=== PATIENT | male | born 1945 | race Caucasian/White ===

== ENCOUNTER 2021-04-13 10:28 | Outpatient (REF) | payer MEDICARE, OTHER, SELFPAY ==
[2021-04-13 12:40] LABS: Prostate Specific Antigen 6.93 ng/mL (<0.05-4.0)
== END 2021-04-13 10:29 | disposition home or self-care (01) ==
LOC: HO.LAB 10:28
PROVIDERS: Visit Provider Urology
DX: R97.20 Elevated prostate specific antigen [PSA] (principal)
CPT/HCPCS: 36415; 84153

== ENCOUNTER → 2021-04-17 11:19 | Outpatient (BNVA) | payer MEDICARE, OTHER, SELFPAY | PROVIDERS: Visit Provider Urology | DX: R97.20 Elevated prostate specific antigen [PSA] (principal) | CPT/HCPCS: Q3014 ==

== ENCOUNTER → 2021-10-17 11:15 | Outpatient (BNVA) | payer OTHER, MEDICARE, SELFPAY | PROVIDERS: PCP Internal Medicine; Visit Provider Urology ==

== ENCOUNTER 2022-04-16 09:52 | Outpatient (REF) | payer OTHER, MEDICARE, SELFPAY ==
[2022-04-16 11:10] LABS: PSA,Total (Free>4and<10) 3.17 ng/mL (0.00-4.00)
== END 2022-04-16 09:53 | disposition home or self-care (01) ==
LOC: HO.LAB 09:52
PROVIDERS: PCP Internal Medicine Critical Care Medicine; Visit Provider Urology
DX: Z12.5 Encounter for screening for malignant neoplasm of prostate (principal); C61 Malignant neoplasm of prostate; N40.1 Benign prostatic hyperplasia with lower urinary tract symptoms; N13.8 Other obstructive and reflux uropathy
CPT/HCPCS: 36415; 84153

== ENCOUNTER 2022-10-11 11:40 | Outpatient (REF) | payer OTHER, MEDICARE, SELFPAY ==
[2022-10-11 13:13] LABS: PSA,Total (Free>4and<10) 2.11 ng/mL (0.00-4.00); Prostate Specific Antigen 2.24 ng/mL (<0.05-4.0)
== END 2022-10-11 11:41 | disposition home or self-care (01) ==
LOC: HO.LAB 11:40
PROVIDERS: Visit Provider Urology
DX: Z12.5 Encounter for screening for malignant neoplasm of prostate (principal); C61 Malignant neoplasm of prostate
CPT/HCPCS: 36415; 84153

== ENCOUNTER → 2022-10-18 13:00 | Outpatient (BNVA) | payer OTHER, SELFPAY | PROVIDERS: PCP Internal Medicine Critical Care Medicine; Visit Provider Urology | DX: N40.1 Benign prostatic hyperplasia with lower urinary tract symptoms (principal); N13.8 Other obstructive and reflux uropathy; C61 Malignant neoplasm of prostate | CPT/HCPCS: 99212 ==

== ENCOUNTER 2023-04-16 15:27 | Outpatient (REF) | payer OTHER, SELFPAY | END 2023-04-16 15:28 | disposition home or self-care (01) | LOC: HO.LAB 15:27 | PROVIDERS: PCP Hospitalist; Visit Provider Urology | DX: Z12.5 Encounter for screening for malignant neoplasm of prostate (principal); C61 Malignant neoplasm of prostate | CPT/HCPCS: 36415; 84153 ==

== ENCOUNTER 2023-04-23 12:52 | Outpatient (AMB) | payer OTHER, SELFPAY ==
--- NOTE | 2023-04-23 13:03 | MHC.OFFVIS ---
Intake Intake Visit Reasons: 6m/PSA(set) Allergies donepezil Allergy (Unknown, Verified 10/18/22 13:14) Unknown No Known Allergies [No Known Allergies*] Allergy (Verified 10/18/22 13:14) HPI HPI Comments History of Present Illness Details Raul is a pleasant male. Martel. He is seen for the following urologic conditions - prostate cancer - lower urinary tract symptoms Telemedicine Evaluation 15 min Consultation [employer] James Melania Video attempted Low PSA Stay on finasteride for next 6 months Understands PSA will ebb and flow on off therapy Prostate cancer initial diagnosis 2010 [place] 6 PSA 4.6 Prostate cancer initial diagnosis [address] Initial pathology PSA 4.6, [place] 6 Initial therapy - active surveillance PSA - historically has varied between 4.9 and as high as 7.2 - 05/01 6.9, 09/01 5.1, 05/02 3.2, 10/31 2.2, 05/03 2.9 Previously has been offered radiation and he understands consequences for delay in therapy PFS Medical History Anisometropia Cataract Chronic a-fib Diabetes mellitus, type II Diaphragmatic hernia Elevated prostate specific antigen [PSA] Elevated PSA Erectile dysfunction Gastro-esophageal reflux disease with esophagitis HTN (hypertension) Hyperlipidemia Prostate cancer Review of Systems Const All systems reviewed & are unremarkable except as noted in HPI and below Reports no additional complaints Resp Reports no additional complaints GI Reports no additional complaints Reports as per HPI Musc Reports no additional complaints Physical Exam Telemedicine evaluation Appropriate responses Regular breathing rate and rhythm HEENT Head: Yes normal to inspection Ears: hearing grossly normal bilaterally Eyes General: appearance normal, both eyes and all related structures Neck Neck: Yes normal visual inspection Chest Chest palpation & inspection: normal inspection of the chest Resp Effort & Inspection: normal respiratory effort and able to speak in complete sentences Assessment & Plan Assessment & Plan (1) Prostate cancer: Code(s): C61 - Malignant neoplasm of prostate (2) BPH w urinary obs/LUTS: Code(s): N40.1 - Benign prostatic hyperplasia with lower urinary tract symptoms; N13.8 - Other obstructive and reflux uropathy Plan Six month follow-up PSA Orders: Orders Prostate Specific Antigen 6 Months C61 - Malignant neoplasm of prostate Medications: New finasteride 5 mg PO DAILY 90 tabs 1RF 90 days C61 - Malignant neoplasm of prostate, N13.8 - Other obstructive and reflux uropathy, N40.1 - Benign prostatic hyperplasia with lower urinary tract symptoms, R33.9 - Retention of urine, unspecified Refilled tamsulosin 0.4 mg PO BEDTIME 90 days 90 caps 3RF N13.8 - Other obstructive and reflux uropathy, N40.1 - Benign prostatic hyperplasia with lower urinary tract symptoms, R35.1 - Nocturia Patient Instructions: Imaging studies, laboratory and physical exam results were discussed and reviewed in detail. No major barriers to patient understanding were identified. An opportunity to ask questions regarding the treatment plan was provided. All questions were answered. The patient expressed understanding and agreement with the above treatment plan. The patient is aware they should contact our office by phone for worsening of their current condition or the appearance of new urologic symptoms. Compliance is encouraged with any medications and followup testing that is ordered. It is a privilege to participate in the urologic care of your patient. If you have any questions or concerns regarding treatment for the above conditions, or other urologic issues, please do not hesitate to contact me. The office telephone contact is [phone]. This note is constructed using voice recognition software. While every effort has been made to ensure accuracy registration specialist errors may have been included. Yours sincerely, Dr Manjeet Mcdaniels MD, [facility] - Urology Providers of Expert, Compassionate Care for the Genitourinary System Telehealth Telehealth Location of provider rendering services: practice address Location of patient: address on file Patient Identification confirmed using: Name, : Yes Telehealth method: voice only Patient verbally consented to treatment: Yes Patient verbally consented to billing insurance company: Yes Patient informed of any privacy concerns related to visit: Yes Coding Level of Care Code Tele Est Pt Level 3 (30061) Diagnoses Prostate cancer C61 BPH w urinary obs/LUTS N40.1; N13.8
== END 2023-04-23 13:38 | disposition home or self-care (01) ==
PROVIDERS: PCP Hospitalist; Visit Provider Urology
DX: C61 Malignant neoplasm of prostate (principal); N40.1 Benign prostatic hyperplasia with lower urinary tract symptoms; N13.8 Other obstructive and reflux uropathy
CPT/HCPCS: 99213

== ENCOUNTER → 2023-04-23 12:52 | Outpatient (BNVA) | payer OTHER, SELFPAY | PROVIDERS: PCP Hospitalist; Visit Provider Urology ==

== ENCOUNTER 2023-10-10 13:41 | Outpatient (REF) | payer OTHER, SELFPAY ==
[2023-10-10 15:14] LABS: Prostate Specific Antigen 3.26 ng/mL (<0.05-4.0)
== END 2023-10-10 13:42 | disposition home or self-care (01) ==
LOC: HO.LAB 13:41
PROVIDERS: PCP Hospitalist; Visit Provider Urology
DX: Z12.5 Encounter for screening for malignant neoplasm of prostate (principal); C61 Malignant neoplasm of prostate
CPT/HCPCS: 36415; 84153

== ENCOUNTER 2023-10-21 12:57 | Outpatient (AMB) | payer OTHER, SELFPAY ==
--- NOTE | 2023-10-21 13:06 | MHC.OFFVIS ---
Intake Intake Visit Reasons: 6M PSA/Med(set/Finasteride)Confirmed Intake Note: Patient is Present for Follow Up Urology Medication: Finasteride, Tamsulosin Antibiotic Allergies: None Blood Thinners: Eliquis Confirmed Pharmacy: [facility] PVR: 43 Allergies donepezil Allergy (Unknown, Verified 10/21/23 13:10) Unknown No Known Allergies [No Known Allergies*] Allergy (Verified 10/21/23 13:10) Medication List - Last Reconciled 10/21/23 by Manjeet Mcdaniels MD allopurinol 300 mg PO DAILY apixaban (Eliquis) 5 mg PO BID atorvastatin mg PO carboxymethylcellulose sodium 0.5% drps ophthalmic (eye) cholecalciferol (vitamin D3) (Vitamin D3) PO cyanocobalamin (vitamin B-12) (Vitamin B-12) 100 mcg PO DAILY finasteride 5 mg PO DAILY 90 days galantamine 4 mg PO BID hydrochlorothiazide 12.5 mg PO DAILY memantine 10 mg PO DAILY metoprolol tartrate 50 mg PO DAILY omeprazole 20 mg PO BID tamsulosin 0.4 mg PO BEDTIME 90 days HPI HPI Comments History of Present Illness Details Raul is a pleasant male. [place]. He is seen for the following urologic conditions - prostate cancer - lower urinary tract symptoms Low PSA Continue with finasteride Understands PSA will ebb and flow on off therapy Six-month follow-up PSA Prostate cancer initial diagnosis 2010 [place] 6 PSA 4.6 Prostate cancer initial diagnosis 2010 at the [place] Initial pathology PSA 4.6, [place] 6 Initial therapy - active surveillance PSA - historically has varied between 4.9 and as high as 7.2 - 05/01 6.9, 09/01 5.1, 05/02 3.2, 10/31 2.2, 05/03 2.9, 11/01 3.3 Previously has been offered radiation and he understands consequences for delay in therapy [facility], [facility] Medical History Hyperlipidemia Gastro-esophageal reflux disease with esophagitis Diaphragmatic hernia Anisometropia Cataract Chronic a-fib Diabetes mellitus, type II HTN (hypertension) Erectile dysfunction Elevated PSA Prostate cancer Elevated prostate specific antigen [PSA] Review of Systems Const Denies chills and Denies fever(s) Card Reports no additional complaints and Denies syncope Resp Denies cough GI Denies abdominal pain and Denies heartburn Reports as per HPI and Denies change in libido Neuro Denies syncope Psych Denies change in libido Endo Denies change in libido Physical Exam Const General: cooperative, healthy appearing, comfortable and no acute distress Orientation/consciousness: patient oriented x3 HEENT Face and sinus: Yes normal facial exam Mouth: moist mucous membranes Neck Neck: Yes normal visual inspection, Yes full ROM and Yes trachea midline Chest Chest palpation & inspection: normal inspection of the chest Resp Effort & Inspection: normal respiratory effort, able to speak in complete sentences and no respiratory distress GI Inspection: Yes normal to inspection Back/Spine/Pelvis Cervical Spine: normal cervical lordosis Thoracic/Lumbar Spine: thoracic and lumbar spine normal to inspection Skin General skin exam: no rashes or lesions noted Neuro General: patient oriented x3, gait normal, tone normal and moves all extremities Extrem General: Yes normal to inspection and Yes capillary refill normal Office Procedures Post Void Residual Post Residual Void Post Void Residual (PVR): [id number] Void Residual by ultrasound Assessment & Plan Assessment & Plan (1) BPH w urinary obs/LUTS: Code(s): N40.1 - Benign prostatic hyperplasia with lower urinary tract symptoms; N13.8 - Other obstructive and reflux uropathy (2) Erectile dysfunction: Code(s): N52.9 - Male erectile dysfunction, unspecified (3) Prostate cancer: Code(s): C61 - Malignant neoplasm of prostate Plan Six-month follow-up Orders: Orders AMB Post Void Residual by ultrasound Today N13.8 - Other obstructive and reflux uropathy, N40.1 - Benign prostatic hyperplasia with lower urinary tract symptoms Prostate Specific Antigen 6 Months N13.8 - Other obstructive and reflux uropathy, N40.1 - Benign prostatic hyperplasia with lower urinary tract symptoms Medications: Refilled finasteride 5 mg PO DAILY 90 days 90 tabs 1RF C61 - Malignant neoplasm of prostate, N13.8 - Other obstructive and reflux uropathy, N40.1 - Benign prostatic hyperplasia with lower urinary tract symptoms, R33.9 - Retention of urine, unspecified Patient Instructions: Imaging studies, laboratory and physical exam results were discussed and reviewed in detail. No major barriers to patient understanding were identified. An opportunity to ask questions regarding the treatment plan was provided. All questions were answered. The patient expressed understanding and agreement with the above treatment plan. The patient is aware they should contact our office by phone for worsening of their current condition or the appearance of new urologic symptoms. Compliance is encouraged with any medications and followup testing that is ordered. It is a privilege to participate in the urologic care of your patient. If you have any questions or concerns regarding treatment for the above conditions, or other urologic issues, please do not hesitate to contact me. The office telephone contact is [phone]. This note is constructed using voice recognition software. While every effort has been made to ensure accuracy lode miner blasting errors may have been included. Yours sincerely, Dr Manjeet Mcdaniels MD, [facility] - Urology Providers of Expert, Compassionate Care for the Genitourinary System Coding Level of Care Code Est Pt Level 3 (22017) Diagnoses BPH w urinary obs/LUTS N40.1; N13.8 Erectile dysfunction N52.9 Prostate cancer C61 CPT Codes Post Residual Void - PVR CPT Code: 71555-Msqo Void Residual by ultrasound ([id number])
== END 2023-10-21 14:12 | disposition home or self-care (01) ==
PROVIDERS: PCP Hospitalist; Referring Provider Urology; Visit Provider Urology
DX: N40.1 Benign prostatic hyperplasia with lower urinary tract symptoms (principal); N13.8 Other obstructive and reflux uropathy; N52.9 Male erectile dysfunction, unspecified; C61 Malignant neoplasm of prostate
CPT/HCPCS: 99213

== ENCOUNTER → 2023-10-21 12:57 | Outpatient (BNVA) | payer OTHER, SELFPAY | PROVIDERS: PCP Hospitalist; Visit Provider Urology | DX: N40.1 Benign prostatic hyperplasia with lower urinary tract symptoms (principal); N13.8 Other obstructive and reflux uropathy; N52.9 Male erectile dysfunction, unspecified; C61 Malignant neoplasm of prostate | CPT/HCPCS: 51798; 99212 ==

== ENCOUNTER 2023-10-27 09:25 | Inpatient (IN) | payer OTHER, SELFPAY ==
[2023-10-27] VITALS (8 sets, daily range): BP systolic 99–129; BP diastolic 49–78; PULSE 90–130; RESP 17–24; TEMP 37.1–38.5; O2SAT 96–98; BMI 26.5
--- NOTE | ~2023-10-27 | XR_ITS ---
EXAMINATION: XR CHEST CLINICAL INFORMATION: Dyspnea and cough COMPARISON: 12/04/2018 TECHNIQUE: Frontal view of the chest was obtained. FINDINGS: The heart and pulmonary vessels appear normal. There is some ill-defined patchy density seen in the right mid lung which could represent an infiltrate. No gross consolidations, pleural effusions, pneumothorax or lung masses are seen. XR/XR chest 1V IMPRESSION: Question of right midlung infiltrate.
--- NOTE | 2023-10-27 09:32 | ED.SOB ---
HPI - SOB/Dyspnea General Chief Complaint: Dyspnea Stated Complaint: COUGH SOB Time Seen by Provider: 10/27/23 09:30 Source: patient, family and old records reviewed Mode of arrival: EMS Limitations: other (dementia) History of Present Illness HPI Narrative: 78 yo male from home here with c/o HLD, GRD, afib on eliquis, HTN, DM, BPH, mild dementia here with c/o cough, increased agitation, confusion, not feeling well, increased dyspnea. Has had a cough for the past month with sick family members but he is not getting better and seemed to get worse yesterday. No falls reported. MD elicited complaint: shortness of breath and cough Onset (ago): month(s) (1 month worse last night) Context: recent illness Timing: progressively worsening Severity: moderate Exacerbating factors: lying flat, exertion and coughing Relieving factors: oxygen and rest Associated symptoms: fever, cough and wheezing Treatment prior to arrival: oxygen (92% with EMS) Related Data Home Medications Medication Instructions Recorded Confirmed allopurinol 300 mg tablet 300 mg PO DAILY 04/17/21 10/21/23 apixaban 5 mg tablet (Eliquis) 5 mg PO BID 04/17/21 10/21/23 atorvastatin 80 mg tablet mg PO 04/17/21 10/21/23 carboxymethylcellulose sodium 0.5 drp ophthalmic (eye) 04/17/21 10/21/23 % eye drops cholecalciferol (vitamin D3) 50 PO 04/17/21 10/21/23 mcg (2,000 unit) tablet (Vitamin D3) galantamine 4 mg tablet 4 mg PO BID 04/17/21 10/21/23 hydrochlorothiazide 12.5 mg capsule 12.5 mg PO DAILY 04/17/21 10/21/23 memantine 10 mg tablet 10 mg PO DAILY 04/17/21 10/21/23 metoprolol tartrate 50 mg tablet 50 mg PO DAILY 04/17/21 10/21/23 omeprazole 20 mg capsule,delayed 20 mg PO BID 04/17/21 10/21/23 release cyanocobalamin (vitamin B-12) 100 100 mcg PO DAILY 10/17/21 10/21/23 mcg tablet (Vitamin B-12) Previous Rx's Medication Instructions Recorded tamsulosin 0.4 mg capsule 0.4 mg PO BEDTIME 90 days #90 caps 04/23/23 finasteride 5 mg tablet 5 mg PO DAILY 90 days #90 tabs 10/21/23 Allergies Allergy/AdvReac Type Severity Reaction Status Date / Time donepezil Allergy Unknown Unknown Verified 10/21/23 13:10 No Known Allergies Allergy Verified 10/21/23 13:10 [No Known Allergies*] Review of Systems Review of Systems: Constitutional : No Fever, pos Chills ENT/Mouth : No sore throat, No Rhinorrhea, No Swallowing Difficulty Eyes: No Eye Pain, No Swelling, No Redness Cardiovascular : No Chest Pain, positive SOB, No Orthopnea, no Edema Respiratory : pos Cough, No Sputum, No Wheezing, positive dyspnea Gastrointestinal : No Nausea, No Vomiting, No Diarrhea, No abdominal Pain, No Hematochezia, No Melena Genitourinary : No Dysuria, No Urinary Frequency, No Hematuria Musculoskeletal : No joint pain, No Myalgias Skin : No Skin Lesions, No rash Neuro : No Weakness, No Numbness, No Dizziness, No Headache Psych : No Anxiety/Panic, No Depression All other systems reviewed and are negative [facility] Past Medical History Attestation statement: The following information was validated with the patient. Source: old records reviewed Medical History Hyperlipidemia Gastro-esophageal reflux disease with esophagitis Diaphragmatic hernia Anisometropia Cataract Chronic a-fib Diabetes mellitus, type II HTN (hypertension) Erectile dysfunction Elevated PSA Prostate cancer Elevated prostate specific antigen [PSA] Social History Social History (Updated 10/27/23 @ 10:03 by Reva Webber DO) Alcohol intake: former Patient Tobacco Use Status: Never used Tobacco Smoked in Last 30 Days: No Use of substances other than those prescribed or required for medical reasons: No Advance Directives: No Advance Directives Information Provided: No Physical Exam Vital Signs: Vital Signs: Last Vital Signs Temp 100.1 F 10/27/23 09:37 Pulse 102 H 10/27/23 10:00 Resp 18 10/27/23 10:00 BP 114/67 10/27/23 09:37 Pulse Ox 96 10/27/23 10:00 O2 Del Method Room Air 10/27/23 10:00 Oxygen Flow Rate 1 10/27/23 09:37 BMI result Body Mass Index 26.5 Appearance: Alert. Oriented X2 at baseline. No acute distress. Eyes: Pupils equal, round and reactive to light. ENT: Pharynx normal. Neck: Normal inspection. Neck supple. CVS: tachyardic irregular heart rate and rhythm. Pulses normal. Respiratory: No respiratory distress. Breath sounds diminished with mild wheezes noted upper lobes Abdomen: Soft and non-tender. Skin: Skin warm and dry. Normal skin color. Normal skin turgor. Extremities: No lower extremity edema. Neuro: Oriented X 2 at baseline. No motor deficit. No sensory deficit. Medications Administered Discontinued Medications Generic Name Dose Route Start Last Admin Trade Name Sue PRN Reason Stop Dose Admin Acetaminophen 650 mg 10/27/23 09:42 10/27/23 10:02 Acetaminophen 325 Mg Tablet PO 10/27/23 09:43 650 mg ONCE ONE Administration Albuterol/Ipratropium 3 ml 10/27/23 09:48 10/27/23 09:53 Albuterol/Iprat 2.5/0.5mg 3 Ml Ampul.Neb INHALE 10/27/23 09:49 3 ml ONCE ONE Administration Ceftriaxone Sodium 1 gm/ 50 mls @ 100 mls/hr 10/27/23 09:42 10/27/23 10:57 Sodium Chloride IV 10/27/23 10:11 Infused ONCE ONE Infusion Sodium Chloride 1,000 mls @ 999 mls/hr 10/27/23 09:45 10/27/23 09:56 Ns IV 10/27/23 10:45 999 mls/hr .Q1H1M VALENTÍN Administration Medical Decision Making Medical Decision Making [facility] Narrative: 78 yo male from home here with c/o HLD, GRD, afib on eliquis, HTN, DM, BPH, mild dementia here with tachycardia, low grade temps persistent fevers and increased work of breathing with some agitation and confusion at this time will obtain labs, CXR, viral panel, UA and give neb treatment, tylenol and empiric ceftriaxone. Differential Diagnosis Differential Diagnoses: The differential diagnosis associated with the presentation includes viral syndrome, CHF, pneumonia, UTI, bronchitis Admission/Observation Consideration of admission/observation: Escalation of care including admission/observation considered will admit given lyte derangment, flu, pneumonia PSI score is 126 Consult Healthcare Provider Management of the patient was discussed with: Hospitalist (will admit) Lab Data [facility] Lab Attestation statement: I reviewed the patient's lab results. 10/27/23 09:59 10/27/23 09:59 Labs: Lab Results 10/27/23 10/27/23 Range/Units 09:59 10:04 WBC 7.9 (4.8-10.8) X10*3/uL RBC 4.22 L (4.60-5.80) X10*6/uL Hgb 12.6 L (14.0-18.0) g/dl Hct 36.9 L (42.0-52.0) % MCV 87.4 (80.0-98.0) fL MCH 29.9 (27.0-33.0) pg MCHC 34.1 (31.0-36.0) g/dl RDW 14.5 (11.0-16.0) % Plt Count 229 (160-400) X10*3/uL MPV 9.9 (9.4-12.4) fL Immature Gran % (Auto) 0.3 (0.0-0.4) % Neut % (Auto) 80.1 H (45-73) % Lymph % (Auto) 9.5 L (20-40) % Hall % (Auto) 9.7 (2-11) % Eos % (Auto) 0.0 (0-4) % Baso % (Auto) 0.4 (0-2) % Lymph # (Auto) 0.8 L (1.2-4.9) X10*3/uL Hall # (Auto) 0.8 (0.1-1.2) X10*3/uL Eos # (Auto) 0.0 (0.0-0.4) X10*3/uL Baso # (Auto) 0.0 (0.0-0.2) X10*3/uL Abs Immat Gran (auto) 0.02 (0.00-0.03) X10*3/uL Absolute Neuts (auto) 6.3 (2.0-8.3) x10*3/uL Absolute Nucleated RBC 0.000 (0.0-0.012) X10*3/uL Nucleated RBC % (auto) 0.0 (0.0-0.2) /100WBC VBG pH 7.54 H (7.32-7.43) VBG pCO2 27 mmHg VBG pO2 83 mmHg VBG HCO3 23 (22-26) mmol/L VBG O2 Saturation 99.0 % VBG Base Excess 2.1 mmol/L Sodium 128 L (135-145) mmol/L Potassium 3.8 (3.3-5.1) mmol/L Chloride 96 (96-108) mmol/L Carbon Dioxide 21 L (22-29) mmol/L Anion Gap 15 (12-20) BUN 12 (9-16) mg/dL Creatinine 0.89 (0.5-1.4) mg/dL Estim Creat Clear Calc 72.9 Estimated GFR > 60 Random Glucose 154 H (60-115) mg/dL Lactic Acid 2.0 (0.5-2.0) mmol/L Calcium 8.8 (8.4-10.2) mg/dL Magnesium 1.4 L* (1.6-2.6) mg/dL Total Bilirubin 1.3 H (0.0-1.0) mg/dL Direct Bilirubin 0.4 (0.0-0.5) mg/dL AST 30 (5-37) U/L ALT 15 (0-40) U/L Alkaline Phosphatase 60 (39-117) U/L Troponin I High Sens 9.6 (<3.5-35.0) ng/L B-Natriuretic Peptide 236 H (<100) pg/mL Total Protein 6.3 L (6.5-8.0) g/dL Albumin 3.9 (3.5-5.0) g/dL Influenza Type A (PCR) POSITIVE A (Negative) Influenza Type B (PCR) NEGATIVE (Negative) RSV RNA Qual (PCR) NEGATIVE (Negative) SARS-CoV-2 RNA (RT-PCR) NEGATIVE (Negative) Independent Interpretation I performed an independent interpretation of an: EKG and Plain X-Ray (R lung opacity) Interpretation: Rate: 95 Rhythm: afib Critz: normal Normal QRS complex. ST T wave : no [place] qTC: 452 prior studies: no acute ischemi The study has been interpreted contemporaneously by me. . Independent Historian Clinical information obtained from an independent historian. History obtained from or confirmed by: Spouse, EMS and Other External Record Review External record reviewed: Outpatient record Critical Care Time Critical Care Time Critical Care Time: Yes Total Critical Care Time: 40 Attestation: review of records, discussion with family, IV magnesium, admission I attest to this time spent taking care of the patient Discharge Plan Discharge Clinical Impression: Acute hyponatremia, Hypomagnesemia, Influenza A CAP (community acquired pneumonia) Qualifiers: Laterality: right Lung location: middle lobe of lung Qualified Code(s): J18.9 - Pneumonia, unspecified organism Patient Disposition: Admitted As Inpatient Prescriptions: No Action cyanocobalamin (vitamin B-12) [Vitamin B-12] 100 mcg tablet 100 mcg PO DAILY carboxymethylcellulose sodium 0.5 % drops ophthalmic (eye) Eliquis 5 mg tablet 5 mg PO BID omeprazole 20 mg capsule,delayed release(DR/EC) 20 mg PO BID metoprolol tartrate 50 mg tablet 50 mg PO DAILY atorvastatin 80 mg tablet PO galantamine 4 mg tablet 4 mg PO BID cholecalciferol (vitamin D3) [Vitamin D3] 50 mcg (2,000 unit) tablet PO allopurinol 300 mg tablet 300 mg PO DAILY hydrochlorothiazide 12.5 mg capsule 12.5 mg PO DAILY memantine 10 mg tablet 10 mg PO DAILY tamsulosin 0.4 mg capsule 0.4 mg PO BEDTIME 90 Days Qty: 90 3RF finasteride 5 mg tablet 5 mg PO DAILY 90 Days Qty: 90 1RF
--- NOTE | 2023-10-27 09:39 | ECG_ITS ---
Test Reason : DYSPNEA Blood Pressure : / mmHG Vent. Rate : 095 BPM Atrial Rate : 000 BPM P-R Int : 000 ms QRS Dur : 090 ms QT Int : 360 ms P-R-T Axes : 000 025 013 degrees QTc Int : 452 ms Atrial fibrillation with premature ventricular or aberrantly conducted complexes Abnormal ECG When compared with ECG of 04-DEC-2018 19:08, No significant change was found Referred By: Reva Webber Electronically Signed By:CLAUS HONEYCUTT
[2023-10-27] MEDS: Albuterol/Iprat 2.5/0.5MG 3 ML AMPUL.NEB INHALE (09:53)
[2023-10-27] MEDS: 0.9 % Sodium Chloride 1,000 ML 999 ML IV (09:56)
[2023-10-27] MEDS: cefTRIAXone sodium 1 GM in 0.9 % Sodium Chloride 50 ML IV (10:02)
[2023-10-27] MEDS: Acetaminophen 325 MG TABLET 650 MG PO ×2 (10:02→23:32)
[2023-10-27 10:06] LABS: MANUAL DIFF FLAG NO
[2023-10-27 10:08] LABS: Basophils Percent Auto 0.4 % (0-2); Hematocrit 36.9 % (42.0-52.0); Hemoglobin 12.6 g/dl (14.0-18.0); Imm Gran Abs Auto 0.02 X10*3/uL (0.00-0.03); Imm Gran Pct Auto 0.3 % (0.0-0.4); Lymphocytes Absolute Auto 0.8 X10*3/uL (1.2-4.9); Lymphocytes Percent Auto 9.5 % (20-40); Mean Corpuscular HGB Conc 34.1 g/dl (31.0-36.0); Mean Corpuscular Hemoglobin 29.9 pg (27.0-33.0); Mean Corpuscular Volume 87.4 fL (80.0-98.0); Mean Platelet Volume 9.9 fL (9.4-12.4); Monocytes Absolute Auto 0.8 X10*3/uL (0.1-1.2); Monocytes Percent Auto 9.7 % (2-11); Neutrophils Absolute Auto 6.3 x10*3/uL (2.0-8.3); Neutrophils Percent Auto 80.1 % (45-73); Platelet Count 229 X10*3/uL (160-400); Red Blood Count 4.22 X10*6/uL (4.60-5.80); Red Cell Distribution Width 14.5 % (11.0-16.0); White Blood Count 7.9 X10*3/uL (4.8-10.8)
[2023-10-27 10:12] LABS: Venous Blood Gas Refer to POC result
[2023-10-27 10:13] LABS: VBG Base Excess 2.1 mmol/L; VBG HCO3 23 mmol/L (22-26); VBG pCO2 27 mmHg; VBG pH 7.54 (7.32-7.43); VBG pO2 83 mmHg
[2023-10-27 10:37] LABS: B Type Natriuretic Peptide 236 pg/mL (<100)
[2023-10-27 10:40] LABS: Troponin-I High Sensitivity 9.6 ng/L (<3.5-35.0)
[2023-10-27 10:52] LABS: Carbon Dioxide 21 mmol/L (22-29); Chloride 96 mmol/L (96-108); Potassium 3.8 mmol/L (3.3-5.1); Sodium 128 mmol/L (135-145)
[2023-10-27 10:53] LABS: Alanine Aminotransferase 15 U/L (0-40); Albumin Level 3.9 g/dL (3.5-5.0); Alkaline Phosphatase 60 U/L (39-117); Anion Gap 15 (12-20); Aspartate Amino Transferase 30 U/L (5-37); Bilirubin Direct 0.4 mg/dL (0.0-0.5); Bilirubin Total 1.3 mg/dL (0.0-1.0); Blood Urea Nitrogen 12 mg/dL (9-16); Calcium 8.8 mg/dL (8.4-10.2); Creatinine Clr Calc Pharmacy 72.9; Estimated Glomerular Filt Rate > 60; Glucose Random 154 mg/dL (60-115); Total Protein 6.3 g/dL (6.5-8.0)
[2023-10-27 10:55] LABS: Magnesium 1.4 mg/dL (1.6-2.6)
[2023-10-27 10:58] LABS: Influenza A PCR POSITIVE (Negative); Influenza B PCR NEGATIVE (Negative); Resp Syncy Virus RNA Qual PCR NEGATIVE (Negative); SARS COV2 PCR INHOUSE NEGATIVE (Negative)
[2023-10-27] MEDS: Magnesium Sulfate/H2O 2 GM/50 ML PIGGYBACK IV (11:14)
[2023-10-27] MEDS: Azithromycin 500 MG in 0.9 % Sodium Chloride 250 ML 125 MG IV (11:33)
[2023-10-27 11:38] LABS: Procalcitonin 0.11 ng/mL
[2023-10-27 13:12] LABS: Appearance Urine Clear; Color Urine Yellow; Glucose Urine UA Negative (Negative); Leukocyte Esterase Urine Negative (Negative); Nitrite Urine Negative (Negative); PH 6.5 (5.0-9.0); Urine Blood Negative (Negative); Urine Ketones Negative (Negative); Urine Protein Negative (Neg-Trace)
--- NOTE | 2023-10-27 14:23 | P.HPHOSP_ITS ---
History of Present Illness Date of Service: 10/27/23 Chief Complaint: cough 78 yo male from home here with complaints of cough, increased agitation, confusion and increased dyspnea. Has had a cough for the past month with sick family members but he is not getting better and seemed to get worse yesterday. No fever, chills, nausea, vomiting, diarrhea. he did have some confusion during the interview so unable to obtain complete information. Flu A positive, chest x-ray showing question of right midlung infiltrate, sodium 128, magnesium 1.4, low-grade temperature of a 100.1 degrees. In the ER, patient was given ceftriaxone, azithromycin, magnesium, albuterol, Tylenol and 1 L of IV fluid. He will be admitted for further management and treatment of flu with community- acquired pneumonia. Review of Systems 2 Review of Systems: Yes Unobtainable due to mental condition (confusion ) [facility] Medical History Hyperlipidemia Gastro-esophageal reflux disease with esophagitis Diaphragmatic hernia Anisometropia Cataract Chronic a-fib Diabetes mellitus, type II HTN (hypertension) Erectile dysfunction Elevated PSA Prostate cancer Elevated prostate specific antigen [PSA] Social History (Updated 10/27/23 @ 10:03 by Reva Webber DO) Household Members: Spouse and Family Housing: House Alcohol intake: former Patient Tobacco Use Status: Never used Tobacco service: Yes Meds Allergies Allergy/AdvReac Type Severity Reaction Status Date / Time donepezil Allergy Unknown Unknown Verified 10/21/23 13:10 No Known Allergies Allergy Verified 10/21/23 13:10 [No Known Allergies*] Active Medications: Current Medications Acetaminophen (Acetaminophen 325 Mg Tablet) 650 mg PO Q6H PRN PRN Reason: Pain, Mild (Pain Scale 1-3) Ondansetron HCl (Ondansetron Hcl 4 Mg/2 Ml Vial) 4 mg IVPUSH Q8H PRN PRN Reason: Nausea and Vomiting Sodium Chloride (0.9 % Sodium Chloride Flush 3 Ml Syringe) [facility] Medication Instructions Recorded Confirmed Last Taken Type allopurinol 300 mg tablet 300 mg PO DAILY 04/17/21 10/27/23 Unknown History apixaban 5 mg tablet (Eliquis) 5 mg PO BID 04/17/21 10/27/23 Unknown History atorvastatin 80 mg tablet 40 mg PO DAILY 04/17/21 10/27/23 Unknown History carboxymethylcellulose sodium 0.5 1 drp ophthalmic (eye) QID 04/17/21 10/27/23 Unknown History % eye drops galantamine 4 mg tablet 4 mg PO BID 04/17/21 10/27/23 Unknown History hydrochlorothiazide 12.5 mg capsule 12.5 mg PO DAILY 04/17/21 10/27/23 Unknown History memantine 10 mg tablet 10 mg PO DAILY 04/17/21 10/27/23 Unknown History omeprazole 20 mg capsule,delayed 20 mg PO BID 04/17/21 10/27/23 Unknown History release cyanocobalamin (vitamin B-12) 100 100 mcg PO DAILY 10/17/21 10/27/23 Unknown History mcg tablet (Vitamin B-12) albuterol sulfate 90 mcg/actuation 2 puff inhalation Q4-6H PRN 10/27/23 10/27/23 Unknown History aerosol inhaler Shortness Of Breath carvedilol 12.5 mg tablet 12.5 mg PO BID 10/27/23 10/27/23 Unknown History Physical Exam 2 Vital Signs and Narrative: Vital Signs: Last Vital Signs Temp 99.6 F 10/27/23 11:20 Pulse 90 10/27/23 12:13 Resp 24 H 10/27/23 12:13 BP 99/63 10/27/23 12:13 Pulse Ox 97 10/27/23 12:13 O2 Del Method Room Air 10/27/23 12:13 Oxygen Flow Rate 1 10/27/23 09:37 BMI result Body Mass Index 26.5 Appearing in no acute distress head is normocephalic atraumatic eyes pupils are PERRLA sclera is anicteric mouth throat mucous membranes are intact and moist neck is supple no lymphadenopathy, no JVD noted lung sounds are clear to auscultation heart regular rate rhythm, clear S1, S2 positive bowel sounds, abdomen is soft, nontender neuro patient is alert x3, no focal deficits Results Labs 10/28/23 05:48 10/28/23 05:48 Labs: Laboratory Results - last 24 hr 10/27/23 10/27/23 10/27/23 09:59 10:04 11:09 MCV 87.4 MCH 29.9 MCHC 34.1 RDW 14.5 Plt Count 229 MPV 9.9 Immature Gran % (Auto) 0.3 Neut % (Auto) 80.1 H Lymph % (Auto) 9.5 L [place] % (Auto) 9.7 Eos % (Auto) 0.0 Baso % (Auto) 0.4 Lymph # (Auto) 0.8 L [place] # (Auto) 0.8 Eos # (Auto) 0.0 Baso # (Auto) 0.0 Abs Immat Gran (auto) 0.02 Absolute Neuts (auto) 6.3 Absolute Nucleated RBC 0.000 Nucleated RBC % (auto) 0.0 VBG pH 7.54 H VBG pCO2 27 VBG pO2 83 VBG HCO3 23 VBG O2 Saturation 99.0 VBG Base Excess 2.1 Anion Gap 15 Estim Creat Clear Calc 72.9 Estimated GFR > 60 Random Glucose 154 H Lactic Acid 2.0 Calcium 8.8 Magnesium 1.4 L* Total Bilirubin 1.3 H Direct Bilirubin 0.4 AST 30 ALT 15 Alkaline Phosphatase 60 Troponin I High Sens 9.6 B-Natriuretic Peptide 236 H Total Protein 6.3 L Albumin 3.9 Procalcitonin 0.11 Urine Color Urine Appearance Urine pH Ur Specific [place] Urine Protein Urine Glucose (UA) Urine Ketones Urine Blood Urine Nitrite Ur Leukocyte Esterase Influenza Type A (MICHELLE) Cancelled Influenza Type A (PCR) POSITIVE A Influenza Type B (MICHELLE) Cancelled Influenza Type B (PCR) NEGATIVE Influenza A & B Note Cancelled RSV RNA Qual (PCR) NEGATIVE SARS-CoV-2 RNA (RT-PCR) NEGATIVE 10/27/23 13:05 MCV MCH MCHC RDW Plt Count MPV Immature Gran % (Auto) Neut % (Auto) Lymph % (Auto) [place] % (Auto) Eos % (Auto) Baso % (Auto) Lymph # (Auto) [place] # (Auto) Eos # (Auto) Baso # (Auto) Abs Immat Gran (auto) Absolute Neuts (auto) Absolute Nucleated RBC Nucleated RBC % (auto) VBG pH VBG pCO2 VBG pO2 VBG HCO3 VBG O2 Saturation VBG Base Excess Anion Gap Estim Creat Clear Calc Estimated GFR Random Glucose Lactic Acid Calcium Magnesium Total Bilirubin Direct Bilirubin AST ALT Alkaline Phosphatase Troponin I High Sens B-Natriuretic Peptide Total Protein Albumin Procalcitonin Urine Color Yellow Urine Appearance Clear Urine pH 6.5 Ur Specific [place] 1.010 Urine Protein Negative Urine Glucose (UA) Negative Urine Ketones Negative Urine Blood Negative Urine Nitrite Negative Ur Leukocyte Esterase Negative Influenza Type A (MICHELLE) Influenza Type A (PCR) Influenza Type B (MICHELLE) Influenza Type B (PCR) Influenza A & B Note RSV RNA Qual (PCR) SARS-CoV-2 RNA (RT-PCR) Imaging Radiologist's Impressions: Impressions Chest X-Ray 10/27/23 10:31 IMPRESSION: Question of right midlung infiltrate. Assessment and Plan (1) Influenza A: Status: Acute (2) CAP (community acquired pneumonia): Qualifiers: Laterality: right Lung location: middle lobe of lung Qualified Code(s): J18.9 - Pneumonia, unspecified organism Status: Acute Plan 78 year old man admitted with Flu A, PNA and increased confusion Influenza A tamiflu supportive care robitussin for cough CAP no hypoxia or sepsis Rocephin and azithromycin supplemental oxygen as needed Hyponatremia likely from dehydration Paroxysmal afib continue metoprolol and apixaban monitor on tele for rvr HTN Hold HCTZ Gout continue allopurinol HLD statin GERD PPI BPH Finesteride and flomax Dementia, unspecified memantine DVT prophylaxis with apixaban Full code Patient will likely require 48 hours for treatment of flu with cough, community- acquired pneumonia requiring IV antibiotics, due to history of dementia patient higher risk for decompensation therefore treatment could not be done at a lesser acute setting. Quality Stroke Does the patient have a stroke diagnosis?: No VTE Prior VTE?: No VTE Risk Level:: Medical - moderate - high VTE Device Contraindication: Treatment Not Indicated VTE Drug Contraindication: N/A - Med Ordered
--- NOTE | 2023-10-27 15:10 | PC.NURSE ---
Patient restless, bedside recliner provided, patient resting comfortably with no s/s of pain or discomfort. Daughter at bedside
[2023-10-27] MEDS: 0.9 % Sodium Chloride Flush 3 ML SYRINGE IVFLUSH ×2 (15:26→23:33)
[2023-10-27 15:28] LABS: Anion Gap 13 (12-20); Blood Urea Nitrogen 10 mg/dL (9-16); Calcium 8.4 mg/dL (8.4-10.2); Carbon Dioxide 24 mmol/L (22-29); Chloride 98 mmol/L (96-108); Creatinine Clr Calc Pharmacy 80.1; Estimated Glomerular Filt Rate > 60; Glucose Random 137 mg/dL (60-115); Magnesium 2.1 mg/dL (1.6-2.6); Sodium 131 mmol/L (135-145)
[2023-10-27] MEDS: Oseltamivir Phosphate 75 MG CAPSULE PO (18:24)
--- NOTE | 2023-10-27 18:50 | PHA.MEDREC ---
Pharmacy Consult ? Medication Reconciliation Pharmacy has completed the medication reconciliation. Patient's daughter did not know medications, patient's was on the way to urgent so could not contact. Received list from the [place]. Yas Mendoza, YadyD
--- NOTE | 2023-10-27 23:45 | PC.NURSE ---
Pateint medicat with Tylenol 650 mg PO for temp 101.1.
[2023-10-28] VITALS (7 sets, daily range): BP systolic 109–125; BP diastolic 61–81; PULSE 69–109; RESP 19–26; TEMP 36.3–36.9; O2SAT 94–98
--- NOTE | 2023-10-28 02:18 | PC.NURSE ---
Patient's emp rechecked 98.3. VSS. Patient in a recliner chair, even chest rise and fall, RR 19. Patient's son at bedside.
[2023-10-28 05:52] LABS: MANUAL DIFF FLAG NO
[2023-10-28 05:53] LABS: Basophils Percent Auto 0.1 % (0-2); Hemoglobin 13.4 g/dl (14.0-18.0); Imm Gran Abs Auto 0.04 X10*3/uL (0.00-0.03); Imm Gran Pct Auto 0.4 % (0.0-0.4); Lymphocytes Absolute Auto 1.3 X10*3/uL (1.2-4.9); Lymphocytes Percent Auto 13.7 % (20-40); Mean Corpuscular HGB Conc 33.5 g/dl (31.0-36.0); Mean Corpuscular Hemoglobin 29.5 pg (27.0-33.0); Mean Corpuscular Volume 88.1 fL (80.0-98.0); Mean Platelet Volume 9.9 fL (9.4-12.4); Monocytes Absolute Auto 0.8 X10*3/uL (0.1-1.2); Monocytes Percent Auto 8.1 % (2-11); Neutrophils Absolute Auto 7.2 x10*3/uL (2.0-8.3); Neutrophils Percent Auto 77.7 % (45-73); Platelet Count 223 X10*3/uL (160-400); Red Blood Count 4.54 X10*6/uL (4.60-5.80); Red Cell Distribution Width 14.7 % (11.0-16.0); White Blood Count 9.3 X10*3/uL (4.8-10.8)
[2023-10-28 06:12] LABS: Magnesium 2.2 mg/dL (1.6-2.6)
[2023-10-28 06:13] LABS: Alanine Aminotransferase 19 U/L (0-40); Albumin Level 3.9 g/dL (3.5-5.0); Alkaline Phosphatase 54 U/L (39-117); Anion Gap 14 (12-20); Aspartate Amino Transferase 47 U/L (5-37); Bilirubin Total 1.1 mg/dL (0.0-1.0); Blood Urea Nitrogen 14 mg/dL (9-16); Calcium 9.2 mg/dL (8.4-10.2); Carbon Dioxide 23 mmol/L (22-29); Chloride 98 mmol/L (96-108); Creatinine Clr Calc Pharmacy 76.3; Estimated Glomerular Filt Rate > 60; Glucose Random 161 mg/dL (60-115); Potassium 4.1 mmol/L (3.3-5.1); Sodium 131 mmol/L (135-145); Total Protein 6.9 g/dL (6.5-8.0)
[2023-10-28 06:19] LABS: B Type Natriuretic Peptide 172 pg/mL (<100)
[2023-10-28] MEDS: Omeprazole 20 MG CAPSULE.DR PO ×2 (08:53→16:14)
[2023-10-28] MEDS: Oseltamivir Phosphate 75 MG CAPSULE PO ×2 (08:53→17:56)
[2023-10-28] MEDS: 0.9 % Sodium Chloride Flush 3 ML SYRINGE IVFLUSH ×3 (08:55→20:02)
--- NOTE | 2023-10-28 08:56 | P.PNIM_ITS ---
Subjective Subjective Date of Service: 10/28/23 Review of Systems Follow-up flu, pneumonia Still feeling unwell Having fevers overnight No shortness of breath Physical Exam 2 Vital Signs: Vital Signs: Last Vital Signs Temp 98.4 F 10/28/23 08:41 Pulse 90 10/28/23 08:41 Resp 26 H 10/28/23 08:41 BP 109/74 10/28/23 08:41 Pulse Ox 97 10/28/23 08:41 O2 Del Method Room Air 10/28/23 08:41 Oxygen Flow Rate 1 10/27/23 09:37 BMI result Body Mass Index 26.5 Appearing in no acute distress lung sounds are clear to auscultation IRIR positive bowel sounds, abdomen is soft, nontender neuro patient is alert x3, no focal deficits Objective Data Active Medications Acetaminophen (Acetaminophen 325 Mg Tablet) 650 mg PO Q6H PRN PRN Reason: Pain, Mild (Pain Scale 1-3) Last Admin: 10/27/23 23:32 Dose: 650 mg Documented By: TIANA Albuterol Sulfate (Albuterol Sulfate 90 Mcg 8 Gm Inhaler) 2 puff INHALE RQ4H PRN PRN Reason: Shortness Of Breath Allopurinol (Allopurinol 300 Mg Tablet) 300 mg PO DAILY [facility] Apixaban (Apixaban 5 Mg Tablet) 5 mg PO BID [facility] Atorvastatin Calcium (Atorvastatin Calcium 40 Mg Tablet) 40 mg PO DAILY [facility] Carvedilol (Carvedilol 12.5 Mg Tablet) 12.5 mg PO BID [facility]; Protocol Cyanocobalamin (Cyanocobalamin (Vitamin B-12) 100 Mcg Tablet) 100 mcg PO DAILY [facility] Finasteride (Finasteride 5 Mg Tablet) 5 mg PO DAILY [facility] Galantamine Hydrobromide (Galantamine Hbr 4 Mg Tablet) 4 mg PO BID [facility] Guaifenesin/Dextromethorphan (Guaifenesin Dm 100/10/5 Ml 5 Ml Syrup) 5 ml PO Q4H PRN PRN Reason: Cough Ceftriaxone Sodium 1 gm/ (Sodium Chloride) 50 mls @ 100 mls/hr IV Q24H [facility] Azithromycin 500 mg/ Sodium (Chloride) 250 mls @ 125 mls/hr IV Q24H [facility] Memantine (Memantine Hcl 10 Mg Tablet) 10 mg PO DAILY [facility] Omeprazole (Omeprazole 20 Mg Capsule.Dr) 20 mg PO BID@8630,5480 [facility] Last Admin: 10/28/23 08:53 Dose: 20 mg Documented By: KASSIE Ondansetron HCl (Ondansetron Hcl 4 Mg/2 Ml Vial) 4 mg IVPUSH Q8H PRN PRN Reason: Nausea and Vomiting Oseltamivir Phosphate (Oseltamivir Phosphate 75 Mg Capsule) 75 mg PO Q12H [facility] Stop: 11/01/23 06:01 Last Admin: 10/28/23 08:53 Dose: 75 mg Documented By: KASSIE Sodium Chloride (0.9 % Sodium Chloride Flush 3 Ml Syringe) 3 ml IVFLUSH QSHIFT [facility] Last Admin: 10/28/23 08:55 Dose: 3 ml Documented By: KASSIE Tamsulosin HCl (Tamsulosin Hcl 0.4 Mg Capsule) 0.4 mg PO BEDTIME [facility] Labs 10/28/23 05:48 10/28/23 05:48 Labs: Laboratory Results - last 24 hr 10/27/23 10/27/23 10/27/23 09:59 10:04 11:09 MCV 87.4 MCH 29.9 MCHC 34.1 RDW 14.5 Plt Count 229 MPV 9.9 Immature Gran % (Auto) 0.3 Neut % (Auto) 80.1 H Lymph % (Auto) 9.5 L [place] % (Auto) 9.7 Eos % (Auto) 0.0 Baso % (Auto) 0.4 Lymph # (Auto) 0.8 L [place] # (Auto) 0.8 Eos # (Auto) 0.0 Baso # (Auto) 0.0 Abs Immat Gran (auto) 0.02 Absolute Neuts (auto) 6.3 Absolute Nucleated RBC 0.000 Nucleated RBC % (auto) 0.0 VBG pH 7.54 H VBG pCO2 27 VBG pO2 83 VBG HCO3 23 VBG O2 Saturation 99.0 VBG Base Excess 2.1 Anion Gap 15 Estim Creat Clear Calc 72.9 Estimated GFR > 60 Random Glucose 154 H Lactic Acid 2.0 Calcium 8.8 Magnesium 1.4 L* Total Bilirubin 1.3 H Direct Bilirubin 0.4 AST 30 ALT 15 Alkaline Phosphatase 60 Troponin I High Sens 9.6 B-Natriuretic Peptide 236 H Total Protein 6.3 L Albumin 3.9 Procalcitonin 0.11 Urine Color Urine Appearance Urine pH Ur Specific [place] Urine Protein Urine Glucose (UA) Urine Ketones Urine Blood Urine Nitrite Ur Leukocyte Esterase Influenza Type A (MICHELLE) Cancelled Influenza Type A (PCR) POSITIVE A Influenza Type B (MICHELLE) Cancelled Influenza Type B (PCR) NEGATIVE Influenza A & B Note Cancelled RSV RNA Qual (PCR) NEGATIVE SARS-CoV-2 RNA (RT-PCR) NEGATIVE 10/27/23 10/27/23 10/28/23 13:05 15:06 05:48 MCV 88.1 MCH 29.5 MCHC 33.5 RDW 14.7 Plt Count 223 MPV 9.9 Immature Gran % (Auto) 0.4 Neut % (Auto) 77.7 H Lymph % (Auto) 13.7 L [place] % (Auto) 8.1 Eos % (Auto) 0.0 Baso % (Auto) 0.1 Lymph # (Auto) 1.3 [place] # (Auto) 0.8 Eos # (Auto) 0.0 Baso # (Auto) 0.0 Abs Immat Gran (auto) 0.04 H Absolute Neuts (auto) 7.2 Absolute Nucleated RBC 0.000 Nucleated RBC % (auto) 0.0 VBG pH VBG pCO2 VBG pO2 VBG HCO3 VBG O2 Saturation VBG Base Excess Anion Gap 13 14 Estim Creat Clear Calc 80.1 76.3 Estimated GFR > 60 > 60 Random Glucose 137 H 161 H Lactic Acid Calcium 8.4 9.2 D Magnesium 2.1 2.2 Total Bilirubin 1.1 H Direct Bilirubin AST 47 H ALT 19 Alkaline Phosphatase 54 Troponin I High Sens B-Natriuretic Peptide 172 H Total Protein 6.9 Albumin 3.9 Procalcitonin Urine Color Yellow Urine Appearance Clear Urine pH 6.5 Ur Specific [place] 1.010 Urine Protein Negative Urine Glucose (UA) Negative Urine Ketones Negative Urine Blood Negative Urine Nitrite Negative Ur Leukocyte Esterase Negative Influenza Type A (MICHELLE) Influenza Type A (PCR) Influenza Type B (MICHELLE) Influenza Type B (PCR) Influenza A & B Note RSV RNA Qual (PCR) SARS-CoV-2 RNA (RT-PCR) Assessment and Plan (1) Influenza A: Status: Acute (2) CAP (community acquired pneumonia): Status: Acute Plan 78 year old man admitted with Flu A, PNA and increased confusion Fever overnight, resolved secondary to pna and flu no sepsis follow blood cx Influenza A tamiflu supportive care robitussin for cough CAP no hypoxia or sepsis Rocephin and azithromycin supplemental oxygen as needed Hyponatremia. Resolving likely from dehydration Paroxysmal afib continue metoprolol and apixaban monitor on tele for rvr HTN Hold HCTZ Gout continue allopurinol HLD statin GERD PPI BPH Finesteride and flomax Dementia, unspecified memantine DVT prophylaxis with apixaban attending Dr. High Full code continue hospital stay for treatment of flu with cough, community-acquired pneumonia requiring IV antibiotics, due to history of dementia patient higher risk for decompensation therefore treatment could not be done at a lesser acute setting. Quality Stroke Does the patient have a stroke diagnosis?: No VTE Prior VTE?: No VTE Risk Level:: Medical - moderate - high VTE Device Contraindication: Treatment Not Indicated VTE Drug Contraindication: N/A - Med Ordered
--- NOTE | 2023-10-28 08:58 | PC.NURSE ---
assumed care of pt at 0700, delay in am medication - d/t requesting from pharmacy, pt medicated per OCT, a&ox4, vss, reporting sore throat, pt pending transport to bed assignment. no new orders at this time.
[2023-10-28] MEDS: allopurinoL 300 MG TABLET PO (10:26)
[2023-10-28] MEDS: Finasteride 5 MG TABLET PO (10:26)
[2023-10-28] MEDS: Memantine HCl 10 MG TABLET PO (10:26)
[2023-10-28] MEDS: Apixaban 5 MG TABLET PO ×2 (10:26→20:02)
[2023-10-28] MEDS: carvediloL 12.5 MG TABLET PO ×2 (10:26→20:02)
[2023-10-28] MEDS: Cyanocobalamin (Vitamin B-12) 100 MCG TABLET PO (10:26)
[2023-10-28] MEDS: guaiFENesin DM 100/10/5 ML 5 ML SYRUP PO ×2 (10:26→20:02)
[2023-10-28] MEDS: Atorvastatin Calcium 40 MG TABLET PO (10:26)
[2023-10-28] MEDS: GALANTAMINE HBR 4 MG PO ×2 (10:26→20:02)
[2023-10-28] MEDS: cefTRIAXone sodium 1 GM in 0.9 % Sodium Chloride 50 ML IV (10:26)
[2023-10-28] MEDS: Azithromycin 500 MG in 0.9 % Sodium Chloride 250 ML 125 MG IV (11:22)
--- NOTE | 2023-10-28 13:51 | MHC.CM.PN ---
Male 78 DX FLU PNA HX Alzheimers lives with and 2 adults, dtr + granddaughter. He states that he is independent with all functional mobility. Macario Martel is his PCP. A copy of his HCP has been requested. DP Home with family support and transport.
--- NOTE | 2023-10-28 16:38 | P.CDIM_ITS ---
PROVIDER RESPONSE TEXT: To clarify, the appropriate diagnosis supported by the clinical indicators: Encephalopathy: metabolic QUERY TEXT: PHYSICIAN'S DOCUMENTATION REQUEST Date of Query: 10/28/2023 11:35 AM EDT Patient Name: Raul Bundy Admit Date: 10/27/2023 Dear Malena Dunaway, A review of the medical record indicates additional documentation may be needed. Please review below and update the documentation accordingly. Clinical Indicators: Ed: increased agitation, confusion, unable to complete information due to confusion. Patient has known Dementia, increased confusion, patient is restless temperature 101.1. Tylenol, ceftriaxone, IV fluids, Azithromycin, Memantine Based on the above, could you clarify if any of the following, is the most likely etiology of the con fusion/altered mental status? Encephalopathy Indicate type such as metabolic, toxic, septic, alcoholic, hypertensive, etc. Dementia Indicate type of dementia, such as Alzheimer's, senile, vascular, Lewy body, etc. Baseline dementia Indicate type, such as Alzheimer's, senile, vascular, Lewy body, etc., and any associated behavioral disturbances (aggressive, combative, or violent behavior) Acute or subacute confusional state due to Specify known or suspected etiology Other (explain) Clinically unable to determine (explain) Thank you, Leilani Duron, CCS, CDIS Use of terms such as suspected, likely, concern for, or probable (associated with a specific diagnosi s that is being evaluated, monitored, or treated as if it exists) are acceptable and can be coded in the inpatient se tting, when documented at the time of discharge. Please use your independent medical judgment in providing your response. THIS QUERY IS PART OF THE PERMANENT MEDICAL RECORD
--- NOTE | 2023-10-28 17:36 | PC.NURSE ---
patient family brought pt's own CPAP from home today. When RN entered the pt'd room , pt was using his own cpap from home. Pt's son stated that pt was not using cpap for a while at home and than about week ago started using again . RN found out that water reservoir had very little water which was womack color. RN instructed pt t remove his cpap d/t dirty equipment. Provider Malena LOPEZ was notified and new order was placed for cpap at provided by [facility]. Pt's son is taking his cpapa back home
--- NOTE | 2023-10-28 19:34 | PC.RT ---
pt states he has not worn cpap for quite some time. pt son at bedside states that pt just recently started using cpap again this past week but was told he no longer requires noc cpap, will hold off on cpap at this time. RN aware
[2023-10-28] MEDS: Acetaminophen 325 MG TABLET 650 MG PO (20:02)
[2023-10-28] MEDS: Tamsulosin HCL 0.4 MG CAPSULE PO (20:02)
[2023-10-29] VITALS: BP 116/77; PULSE 61; RESP 20; TEMP 36.1; O2SAT 97
[2023-10-29 03:44] VITALS: BP 132/83; PULSE 96; RESP 20; TEMP 35.9; O2SAT 97
[2023-10-29] MEDS: Oseltamivir Phosphate 75 MG CAPSULE PO (05:59)
[2023-10-29] MEDS: Omeprazole 20 MG CAPSULE.DR PO (05:59)
[2023-10-29] MEDS: guaiFENesin DM 100/10/5 ML 5 ML SYRUP PO (06:00)
[2023-10-29 07:31] VITALS: BP 123/86; PULSE 92; RESP 18; TEMP 36.4; O2SAT 96
[2023-10-29] MEDS: Memantine HCl 10 MG TABLET PO (08:17)
[2023-10-29] MEDS: Cyanocobalamin (Vitamin B-12) 100 MCG TABLET PO (08:17)
[2023-10-29] MEDS: Apixaban 5 MG TABLET PO (08:17)
[2023-10-29] MEDS: allopurinoL 300 MG TABLET PO (08:17)
[2023-10-29] MEDS: Atorvastatin Calcium 40 MG TABLET PO (08:17)
[2023-10-29] MEDS: GALANTAMINE HBR 4 MG PO (08:17)
[2023-10-29] MEDS: carvediloL 12.5 MG TABLET PO (08:18)
[2023-10-29] MEDS: 0.9 % Sodium Chloride Flush 3 ML SYRINGE IVFLUSH (08:18)
[2023-10-29] MEDS: Finasteride 5 MG TABLET PO (08:18)
[2023-10-29] MEDS: Acetaminophen 325 MG TABLET 650 MG PO (08:31)
[2023-10-29] MEDS: cefTRIAXone sodium 1 GM in 0.9 % Sodium Chloride 50 ML IV (11:05)
--- NOTE | 2023-10-29 11:15 | MHC.CM.PN ---
Patient is discharged to home today with family assist and transport.
[2023-10-29 11:17] VITALS: BP 108/61; PULSE 84; RESP 20; TEMP 36.6; O2SAT 96
--- NOTE | 2023-10-29 11:38 | P.DS_ITS ---
DS: Providers Provider Date of Service: 10/29/23 Date of admission: 10/27/23 14:26 Primary care physician: Macario Martel PA-C DS: Diagnosis Discharge Diagnosis (1) Influenza A: Status: Acute (2) CAP (community acquired pneumonia): Status: Acute DS: Summary Hospital Course Hospital Course: History of presenting illness: Date of Service: 10/27/23 Chief Complaint: cough 78 yo male from home here with complaints of cough, increased agitation, confusion and increased dyspnea. Has had a cough for the past month with sick family members but he is not getting better and seemed to get worse yesterday. No fever, chills, nausea, vomiting, diarrhea. he did have some confusion during the interview so unable to obtain complete information. Flu A positive, chest x-ray showing question of right midlung infiltrate, sodium 128, magnesium 1.4, low-grade temperature of a 100.1 degrees. In the ER, patient was given ceftriaxone, azithromycin, magnesium, albuterol, Tylenol and 1 L of IV fluid. He will be admitted for further management and treatment of flu with community- acquired pneumonia. Hospital course: 78 year old man admitted with Flu A, PNA and increased confusion admitted to medical floor treated with Tamiflu and IV antibiotic Rocephin and azithromycin, patient responded well to above treatment, fever resolved, blood culture showed no growth, oxygenation remained stable, therefore being discharged home on [place] flu and antibiotics recommend to rest and take cough medication as needed. Hyponatremia. Likely from dehydration and being on hydrochlorothiazide, sodium remains stable , hydrochlorothiazide discontinued since noted to have soft blood pressures. Paroxysmal afib continue metoprolol and apixaban Gout continue allopurinol HLD continue statin BPH no acute issues noted continue Finesteride and flomax Dementia, unspecified continue memantine Time Attestation Discharge Coordination Time (in mins): 35 Quality: Safe Use of Opioids Does Pt have an Active Cancer Diagnosis on the Problem List?: No Quality: Stroke Does the patient have a stroke diagnosis?: No Physical Exam Vital Signs: Vital Signs: Last Vital Signs Temp 97.9 F 10/29/23 11:17 Pulse 84 10/29/23 11:17 Resp 20 10/29/23 11:17 BP 108/61 10/29/23 11:17 Pulse Ox 96 10/29/23 11:17 O2 Del Method Room Air 10/29/23 11:17 Oxygen Flow Rate 1 10/27/23 09:37 BMI result Body Mass Index 26.5 Const: Other: General awake alert x3, in no acute distress. Neck supple no JVD. CVS regular rate rhythm, Respiratory lungs clear to auscultation, no respiratory distress, no wheeze, no rhonchi. Gastrointestinal abdomen soft, non tender, bowel sounds audible, no guarding , no rigidity. Extremities no edema. Neuro non focal Skin no rash DS: Data Data Completed and Pending Labs on day of discharge: Preliminary micro results at discharge 10/27/23 09:59 Blood Culture - Preliminary Blood - Venous No growth after 24 hours. 10/27/23 09:55 Blood Culture - Preliminary Blood - Venous No growth after 24 hours. Discharge Plan Discharge Anticipated Discharge Date/Time: 10/29/23 11:26 Patient Disposition: Home, Self-Care Discharge Diagnosis: Influenza a Community-acquired pneumonia Acute hypomagnesemia Acute hyponatremia Referrals: Macario Martel PA-C [Primary Care Provider] - 1 Week Discharge Medications: New dextromethorphan-guaifenesin 10-100 mg/5 mL Syrup 10 ml PO Q6H PRN (Reason: Cough) Qty: 237 0RF oseltamivir [Tamiflu] 75 mg Capsule 75 mg PO Q12H Qty: 6 0RF cefuroxime axetil 500 mg tablet 500 mg PO BID Qty: 6 0RF Continued carvedilol 12.5 mg Tablet 12.5 mg PO BID Rx Instructions: must administer with a meal/food albuterol sulfate 90 mcg/actuation Hfa Aerosol Inhaler 2 puff INHALATION Q4-6H PRN (Reason: Shortness Of Breath) cyanocobalamin (vitamin B-12) [Vitamin B-12] 100 mcg tablet 100 mcg PO DAILY carboxymethylcellulose sodium 0.5 % drops 1 drp ophthalmic (eye) QID Eliquis 5 mg tablet 5 mg PO BID omeprazole 20 mg capsule,delayed release(DR/EC) 20 mg PO BID atorvastatin 80 mg tablet 40 mg PO DAILY galantamine 4 mg tablet 4 mg PO BID allopurinol 300 mg tablet 300 mg PO DAILY memantine 10 mg tablet 10 mg PO DAILY tamsulosin 0.4 mg capsule 0.4 mg PO BEDTIME 90 Days Qty: 90 3RF finasteride 5 mg tablet 5 mg PO DAILY 90 Days Qty: 90 1RF Discontinued hydrochlorothiazide 12.5 mg capsule 12.5 mg PO DAILY Discharge Orders: Discharge Order (Routine); Ordered 10/29/23 Ordered By: Dangelo Saravia Diet: Advance to usual diet Activity on Discharge: As tolerated Stand Alone Forms: Patient Portal Discharge page Print Language: Upper Sorbian Care Plan Goals: Influenza A infection take Tamiflu as directed Take Ceftin 1 tablet twice daily Rest, take cough medication as needed Hold hydrochlorothiazide due to soft blood pressure Health Concerns: Continue all home medications as before Paroxysmal atrial fibrillation Hypertension Plan of Treatment: As above Assessment: Outpatient follow-up with primary care physician call for appointment Discharge Date/Time: 10/29/23 12:40
== END 2023-10-29 12:40 | disposition home or self-care (01) | DRG 193 ==
LOC: HO.ED 11:16 → HO.EDOVER 14:28 → HO.IMC 10-28 07:36
PROVIDERS: Admitting Provider Nurse Practitioner Acute Care; Emergency Provider Emergency Medicine; PCP Hospitalist; Referring Provider Hospitalist; Visit Provider Hospitalist
DX: J10.00 Influenza due to other identified influenza virus with unspecified type of pneumonia (principal); G93.41 Metabolic encephalopathy; E87.1 Hypo-osmolality and hyponatremia; F03.A0 Unspecified dementia, mild, without behavioral disturbance, psychotic disturbance, mood disturbance, and anxiety; I10 Essential (primary) hypertension; N40.0 Benign prostatic hyperplasia without lower urinary tract symptoms; E83.42 Hypomagnesemia; I48.0 Paroxysmal atrial fibrillation; M10.9 Gout, unspecified; E78.5 Hyperlipidemia, unspecified; E86.0 Dehydration; Z20.822 Contact with and (suspected) exposure to COVID-19; Z79.01 Long term (current) use of anticoagulants; Z79.899 Other long term (current) drug therapy
CPT/HCPCS: 0241U; 36415; 71045; 80048; 80053; 80076; 81003; 82803; 83605; 83735; 83880; 84145; 84484; 85025; 87040; 93005; 94640; 99285; J0456; J0696; J3475

== ENCOUNTER → 2023-10-27 09:39 | Outpatient (BNV) | payer OTHER, SELFPAY | PROVIDERS: Admitting Provider Nurse Practitioner Acute Care; Emergency Provider Emergency Medicine; PCP Hospitalist; Visit Provider Internal Medicine | DX: I48.91 Unspecified atrial fibrillation (principal); I49.3 Ventricular premature depolarization | CPT/HCPCS: 93010 ==

== ENCOUNTER → 2023-10-27 14:26 | Outpatient (BNV) | payer OTHER, SELFPAY | PROVIDERS: Admitting Provider Nurse Practitioner Acute Care; Emergency Provider Emergency Medicine; PCP Hospitalist; Visit Provider Nurse Practitioner Acute Care | DX: J10.1 Influenza due to other identified influenza virus with other respiratory manifestations (principal); J18.9 Pneumonia, unspecified organism | CPT/HCPCS: 99223; 99232; 99239 ==

== ENCOUNTER 2024-04-16 11:00 | Outpatient (REF) | payer OTHER, SELFPAY ==
[2024-04-16 12:36] LABS: Prostate Specific Antigen 2.63 ng/mL (<0.05-4.0)
== END 2024-04-16 11:01 | disposition home or self-care (01) ==
LOC: HO.LAB 11:00
PROVIDERS: PCP Hospitalist; Visit Provider Urology
DX: N40.1 Benign prostatic hyperplasia with lower urinary tract symptoms (principal); N13.8 Other obstructive and reflux uropathy; Z12.5 Encounter for screening for malignant neoplasm of prostate
CPT/HCPCS: 36415; 84153

== ENCOUNTER 2024-04-22 11:15 | Outpatient (AMB) | payer OTHER, SELFPAY ==
--- NOTE | 2024-04-22 11:16 | MHC.OFFVIS ---
Intake Visit Reasons: 6M Follow Up-psa(set) Intake Note: Patient is Present for Telephone Follow Up PSA Urology Med:Finasteride, Tamsulosin Antibiotic Allergy: None Blood Thinner: Hermelindo 04/16/24- PSA- 2.63 Last PSA- 2.11 Cargoman Required: No Accompanied by: Self / Same As Patient Allergies donepezil Allergy (Unknown, Verified 04/22/24 11:19) Unknown No Known Allergies [No Known Allergies*] Allergy (Verified 04/22/24 11:19) HPI Comments Details: Raul is a pleasant male. [place]. He is seen for the following urologic conditions - prostate cancer - lower urinary tract symptoms Telemedicine Evaluation 15 min Consultation DoxSwingShot Melania Video Low PSA Continue with finasteride Understands PSA will ebb and flow on off therapy Six-month follow-up PSA Prostate cancer initial diagnosis 2010 [place] 6 PSA 4.6 Prostate cancer initial diagnosis 2010 at the [place] Initial pathology PSA 4.6, [place] 6 Initial therapy - active surveillance PSA - historically has varied between 4.9 and as high as 7.2 - 05/01 6.9, 09/01 5.1, 05/02 3.2, 10/31 2.2, 05/03 2.9, 11/01 3.3, 05/04 2.6 Previously has been offered radiation and he understands consequences for delay in therapy [facility] Medical History Hyperlipidemia Gastro-esophageal reflux disease with esophagitis Diaphragmatic hernia Anisometropia Cataract Chronic a-fib Diabetes mellitus, type II HTN (hypertension) Erectile dysfunction Elevated PSA Prostate cancer Elevated prostate specific antigen [PSA] Social History Household Members: Spouse and Family Housing: House Alcohol intake: former Patient Tobacco Use Status: Never used Tobacco service: Yes Review of Systems Const All systems reviewed & are unremarkable except as noted in HPI and below Reports no additional complaints Resp Reports no additional complaints GI Reports no additional complaints Reports as per HPI Musc Reports no additional complaints Physical Exam Telemedicine evaluation Appropriate responses Regular breathing rate and rhythm HEENT Head: Yes normal to inspection Ears: hearing grossly normal bilaterally Eyes General: appearance normal, both eyes and all related structures Neck Neck: Yes normal visual inspection Chest Chest palpation & inspection: normal inspection of the chest Resp Effort & Inspection: normal respiratory effort and able to speak in complete sentences Telehealth Telehealth Telehealth Platform: [employer] Location of provider rendering services: practice address Location of patient: address on file Patient Identification confirmed using: Name, : Yes Telehealth method: video Patient verbally consented to treatment: Yes Patient verbally consented to billing insurance company: Yes Patient informed of any privacy concerns related to visit: Yes Minutes spent on Phone/Video with Pt.: 15 Assessment & Plan Assessment & Plan (1) Prostate cancer: Code(s): C61 - Malignant neoplasm of prostate Category: Medical Plan Six-month follow-up Orders: Orders Prostate Specific Antigen 6 Months C61 - Malignant neoplasm of prostate Patient Instructions: Imaging studies, laboratory and physical exam results were discussed and reviewed in detail. No major barriers to patient understanding were identified. An opportunity to ask questions regarding the treatment plan was provided. All questions were answered. The patient expressed understanding and agreement with the above treatment plan. The patient is aware they should contact our office by phone for worsening of their current condition or the appearance of new urologic symptoms. Compliance is encouraged with any medications and followup testing that is ordered. It is a privilege to participate in the urologic care of your patient. If you have any questions or concerns regarding treatment for the above conditions, or other urologic issues, please do not hesitate to contact me. The office telephone contact is [phone]. This note is constructed using voice recognition software. While every effort has been made to ensure accuracy game preserve manager errors may have been included. Yours sincerely, Dr Manjeet Mcdaniels MD, [facility] - Urology Providers of Expert, Compassionate Care for the Genitourinary System Coding Level of Care Code Tele Est Pt Level 3 (92424) Complex EM visit Add On G2211 Diagnoses Prostate cancer C61
== END 2024-04-22 11:59 | disposition home or self-care (01) ==
LOC: HO.HUSH 11:15
PROVIDERS: PCP Hospitalist; Visit Provider Urology
DX: C61 Malignant neoplasm of prostate (principal)
CPT/HCPCS: 99213; G2211

== ENCOUNTER → 2024-04-22 11:15 | Outpatient (BNVA) | payer OTHER, SELFPAY | PROVIDERS: PCP Hospitalist; Visit Provider Urology ==

== ENCOUNTER 2024-11-02 10:41 | Outpatient (REF) | payer OTHER, SELFPAY ==
[2024-11-02 14:10] LABS: Prostate Specific Antigen 3.14 ng/mL (<0.05-4.0)
== END 2024-11-02 10:42 | disposition home or self-care (01) ==
LOC: HO.10HDL 10:41
PROVIDERS: Visit Provider Urology
DX: C61 Malignant neoplasm of prostate (principal); Z12.5 Encounter for screening for malignant neoplasm of prostate
CPT/HCPCS: 36415; 84153

== ENCOUNTER 2024-11-03 13:03 | Outpatient (AMB) | payer OTHER, SELFPAY ==
--- NOTE | 2024-11-03 13:15 | A.OFFVIS_ITS ---
Intake Visit Reasons: 6m/PSA(psa?) Intake Note: Patient is present for 6M/PSA Urology Medication: Antibiotic Allergy: Blood Thinner: Allergies donepezil Allergy (Unknown, Verified 04/22/24 11:19) Unknown No Known Allergies [No Known Allergies*] Allergy (Verified 04/22/24 11:19) HPI Comments Details: Raul is a pleasant male. [place]. He is seen for the following urologic conditions - prostate cancer - lower urinary tract symptoms PSA 3.1 - Continue with finasteride daily Six-month follow-up PSA Prostate cancer initial diagnosis 2010 [place] 6 PSA 4.6 Prostate cancer initial diagnosis 2010 at the [place] Initial pathology PSA 4.6, [place] 6 Initial therapy - active surveillance PSA - historically has varied between 4.9 and as high as 7.2 - 05/01 6.9, 09/01 5.1, 05/02 3.2, 10/31 2.2, 05/03 2.9, 11/01 3.3, 05/04 2.6, 11/02 3.1 Previously has been offered radiation and he understands consequences for delay in therapy [facility] Medical History Hyperlipidemia Gastro-esophageal reflux disease with esophagitis Diaphragmatic hernia Anisometropia Cataract Chronic a-fib Diabetes mellitus, type II HTN (hypertension) Erectile dysfunction Elevated PSA Prostate cancer Elevated prostate specific antigen [PSA] Social History Household Members: Spouse and Family Housing: House Alcohol intake: former Patient Tobacco Use Status: Never used Tobacco service: Yes Review of Systems Const Denies chills and Denies fever(s) Card Reports no additional complaints and Denies syncope Resp Denies cough GI Denies abdominal pain and Denies heartburn Reports as per HPI and Denies change in libido Neuro Denies syncope Psych Denies change in libido Endo Denies change in libido Physical Exam Const General: cooperative, healthy appearing, comfortable and no acute distress Orientation/consciousness: patient oriented x3 HEENT Face and sinus: Yes normal facial exam Mouth: moist mucous membranes Neck Neck: Yes normal visual inspection, Yes full ROM and Yes trachea midline Chest Chest palpation & inspection: normal inspection of the chest Resp Effort & Inspection: normal respiratory effort, able to speak in complete sentences and no respiratory distress GI Inspection: Yes normal to inspection Back/Spine/Pelvis Cervical Spine: normal cervical lordosis Thoracic/Lumbar Spine: thoracic and lumbar spine normal to inspection Skin General skin exam: no rashes or lesions noted Neuro General: patient oriented x3, gait normal, tone normal and moves all extremities Extrem General: Yes normal to inspection and Yes capillary refill normal Assessment & Plan Assessment & Plan (1) Prostate cancer: Code(s): C61 - Malignant neoplasm of prostate Category: Medical Plan Six-month follow-up PSA Orders: Orders PSA,Total (Free>4and<10) 6 Months C61 - Malignant neoplasm of prostate Patient Instructions: This note is constructed using voice recognition software. While every effort has been made to ensure accuracy cherry picker operator errors may have been included. Imaging studies, laboratory and physical exam results were discussed and reviewed in detail. No major barriers to patient understanding were identified. An opportunity to ask questions regarding the treatment plan was provided. All questions were answered. The patient expressed understanding and agreement with the above treatment plan. The patient is aware they should contact our office by phone for worsening of their current condition or the appearance of new urologic symptoms. Compliance is encouraged with any medications and followup testing that is ordered. It is a privilege to participate in the urologic care of your patient. If you have any questions or concerns regarding treatment for the above conditions, or other urologic issues, please do not hesitate to contact me. The office telephone contact is [phone]. Sincerely, Dr Manjeet Mcdaniels MD, [facility] - Urology Compassionate Specialist Care for the Genitourinary System Coding Level of Care Code Est Pt Level 3 (99566) Complex EM visit Add On G2211 Diagnoses Prostate cancer C61
== END 2024-11-03 14:11 | disposition home or self-care (01) ==
LOC: HO.HUSH 13:03
PROVIDERS: PCP Hospitalist; Visit Provider Urology
DX: C61 Malignant neoplasm of prostate (principal)
CPT/HCPCS: 99213; G2211

== ENCOUNTER → 2024-11-03 13:03 | Outpatient (BNVA) | payer OTHER, SELFPAY | PROVIDERS: PCP Hospitalist; Visit Provider Urology | DX: C61 Malignant neoplasm of prostate (principal) | CPT/HCPCS: 99212 ==

== ENCOUNTER 2025-04-26 14:23 | Outpatient (REF) | payer OTHER, SELFPAY ==
[2025-04-26 16:01] LABS: PSA,Total (Free>4and<10) 3.00 ng/mL (0.00-4.00)
--- OUTSIDE RECORDS SUMMARY | 2025-04-26 18:08 | XMS_ITS | Clinical Summary ---
Author Organization Located Within [facility] Address [address] [place] [id number] Phone Care Team Providers Care Safety And Skill Based Pay Manager Name Role Phone Pcp, Unknown Primary Care Provider Unavailabl e Social History Tobacco Use Types Packs/Day Years Used Date Smoking Tobacco: Never Assessed Education Answer Date Recorded Are you interested in more education? Not on denzel e 10/08/2023 Are you concerned about learning? Not on file 10/08/2023 No 10/08/2023 No 10/08/2023 Digital Access Answer Date Recorded No 10/08/2023 No 10/08/2023 Reliable internet access at home? Not on file 10/08/2023 Device with a working camera? Not on file Sex and Gender Information Value Date Recorded Sex Assigned at Not on file Legal Sex Male 10:47 AM EST Gender Identity Not on file Sexual Orientation Not on file Plan of Treatment Health Maintenance Due Date Last Done Comments Adult Td,Tdap Booster 1947 LIPID PANEL 1947 DEPRESSION SCREENING 1959 SMOKING Hx and SMOKELESS TOB ACCO SCREENING 1960 HEPATITIS C SCREENING 1965 PNEUMOCOCCAL VACCINES (50+ y ears) (1 of 1 - PCV) 1997 ZOSTER VACCINES (1 of 2) 1997 RSV VACCINE (1 - 1-dose 75+ series) 2022 INFLUENZA VACCINE (#1) 2025 COVID-19 VACCINE ( - 2023-2 5 season) 2025 HEPATITIS A VACCINES Aged Out No long er eligible based on patient's age to complete this topic HIB VACCINES Aged Out No longer eligi ble based on patient's age to complete this topic MENINGOCOCCAL VACCINES (ACWY) Aged Out No longer eligible based on patient's age to complete this topic MENINGOCOCCAL VACCINES (B) Aged Out N o longer eligible based on patient's age to complete this topic Medical Devices Not on file Insurance MEDICARE PART A & B Member Subscriber Plan / Payer (Ef fective 2012-Present) Name:Raul Bundy Member ID:[id number] Relation to Subscriber:Self Name:Raul Subscriber ID:[id number] Payer ID:[id number] Group ID:Not on file Type:Medicare Address: [facility] [employer] [facility] [address] [place] [id number] MEDICARE PART A & B MEDICARE PART A & [place] [address] [address] [address] MEDICARE PART A & B MEDICARE PART A & B MEDICARE PART A & B Care Teams Safety And Skill Based Pay Manager Relationship Specialty Start Date End Date Pcp, Unknown PCP - General 10/06/23 Additional Source Comments The information contained in this document represents components of the legal health record. It is not the complete legal health record.Located Within [facility]
== END 2025-04-26 14:24 | disposition home or self-care (01) ==
LOC: HO.LAB 14:23
PROVIDERS: Visit Provider Urology
DX: Z12.5 Encounter for screening for malignant neoplasm of prostate (principal); C61 Malignant neoplasm of prostate
CPT/HCPCS: 36415; 84153

== ENCOUNTER 2025-05-06 13:31 | Outpatient (AMB) | payer OTHER, SELFPAY ==
--- NOTE | 2025-05-06 13:32 | A.OFFVIS_ITS ---
Intake Visit Reasons: 6m/PSA Intake Note: Patient is present for 6M/PSA Urology Medication: Antibiotic Allergy: Blood Thinner:eliquis Labs done 04/26/25 : PSA Total 3.00 Diffusion Furnace Operator Required: No Accompanied by: Self / Same As Patient Allergies donepezil Allergy (Unknown, Verified 05/06/25 13:33) Unknown No Known Allergies (No Known Allergies*) Allergy (Verified 05/06/25 13:33) HPI Comments Details: Raul is a pleasant male. He is a patient of Dr. Martel. He is seen for the following urologic conditions - prostate cancer - lower urinary tract symptoms Accompanied by his PSA 3.0 Continue with finasteride daily Continue six-month follow-up Prostate cancer initial diagnosis 2010 [place] 6 PSA 4.6 Prostate cancer initial diagnosis 2010 at the [place] Initial pathology PSA 4.6, [place] 6 Initial therapy - active surveillance PSA - historically has varied between 4.9 and as high as 7.2 - 05/01 6.9, 09/01 5.1, 05/02 3.2, 10/31 2.2, 05/03 2.9, 11/01 3.3, 05/04 2.6, 11/02 3. 3.0 Previously has been offered radiation and he understands consequences for delay in therapy [facility] Medical History Hyperlipidemia Gastro-esophageal reflux disease with esophagitis Diaphragmatic hernia Anisometropia Cataract Chronic a-fib Diabetes mellitus, type II HTN (hypertension) Erectile dysfunction Elevated PSA Prostate cancer Elevated prostate specific antigen [PSA] Social History Household Members: Spouse and Family Housing: House Alcohol intake: former Patient Tobacco Use Status: Never used Tobacco service: Yes Review of Systems Const Denies chills and Denies fever(s) Card Reports no additional complaints and Denies syncope Resp Denies cough GI Denies abdominal pain and Denies heartburn Reports as per HPI and Denies change in libido Neuro Denies syncope Psych Denies change in libido Endo Denies change in libido Physical Exam Const General: cooperative, healthy appearing, comfortable and no acute distress Orientation/consciousness: patient oriented x3 HEENT Face and sinus: Yes normal facial exam Mouth: moist mucous membranes Neck Neck: Yes normal visual inspection, Yes full ROM and Yes trachea midline Chest Chest palpation & inspection: normal inspection of the chest Resp Effort & Inspection: normal respiratory effort, able to speak in complete sentences and no respiratory distress GI Inspection: Yes normal to inspection Back/Spine/Pelvis Cervical Spine: normal cervical lordosis Thoracic/Lumbar Spine: thoracic and lumbar spine normal to inspection Skin General skin exam: no rashes or lesions noted Neuro General: patient oriented x3, gait normal, tone normal and moves all extremities Extrem General: Yes normal to inspection and Yes capillary refill normal Assessment & Plan Assessment & Plan (1) BPH w urinary obs/LUTS: Code(s): N40.1 - Benign prostatic hyperplasia with lower urinary tract symptoms; N13.8 - Other obstructive and reflux uropathy Category: Medical (2) Erectile dysfunction: Code(s): N52.9 - Male erectile dysfunction, unspecified Category: Medical (3) Prostate cancer: Code(s): C61 - Malignant neoplasm of prostate Category: Medical Plan Six-month follow-up PSA Patient Instructions: This note is constructed using voice recognition software. While every effort has been made to ensure accuracy customer experience strategist errors may have been included. Imaging studies, laboratory and physical exam results were discussed and reviewed in detail. No major barriers to patient understanding were identified. An opportunity to ask questions regarding the treatment plan was provided. All questions were answered. The patient expressed understanding and agreement with the above treatment plan. The patient is aware they should contact our office by phone for worsening of their current condition or the appearance of new urologic symptoms. Compliance is encouraged with any medications and followup testing that is ordered. It is a privilege to participate in the urologic care of your patient. If you have any questions or concerns regarding treatment for the above conditions, or other urologic issues, please do not hesitate to contact me. The office telep aracelis contact is [phone]. Sincerely, Dr Manjeet Mcdaniels MD, [facility] - Urology Compassionate Specialist Care for the Genitourinary System Coding Level of Care Code Est Pt Level 3 (72183) Complex EM visit Add On G2211 Diagnoses BPH w urinary obs/LUTS N40.1; N13.8 Erectile dysfunction N52.9 Prostate cancer C61
--- OUTSIDE RECORDS SUMMARY | 2025-05-06 14:52 | XMS_ITS | Clinical Summary ---
Author Organization [facility] Address [address] [place] [phone] Phone Care Team Providers Care Electroformer Name Role Phone Pcp, Unknown Primary Care [...] file Insurance MEDICARE PART A & B MEDICARE PART A & B MEDICARE PART A & [place] [address] MEDICARE PART A & B MEDICARE PART A & B MEDICARE PART A & B Care Teams Electroformer Relationship Specialty Start Date End Date Pcp, Unknown PCP - General 10/06/23 Additional Source Comments The information contained in this document represents components of the legal health record. It is not the complete legal health record.[facility]
== END 2025-05-06 14:11 | disposition home or self-care (01) ==
LOC: HO.HUSH 13:32
PROVIDERS: PCP Hospitalist; Visit Provider Urology
DX: N40.1 Benign prostatic hyperplasia with lower urinary tract symptoms (principal); N13.8 Other obstructive and reflux uropathy; N52.9 Male erectile dysfunction, unspecified; C61 Malignant neoplasm of prostate
CPT/HCPCS: 99213; G2211

== ENCOUNTER → 2025-05-06 13:31 | Outpatient (BNVA) | payer OTHER, SELFPAY | PROVIDERS: PCP Hospitalist; Visit Provider Urology | DX: N40.1 Benign prostatic hyperplasia with lower urinary tract symptoms (principal); N13.8 Other obstructive and reflux uropathy; N52.9 Male erectile dysfunction, unspecified; C61 Malignant neoplasm of prostate | CPT/HCPCS: 99212 ==